=== PATIENT | female | born 1990 | race Caucasian/White ===

== ENCOUNTER 2019-03-25 20:36 | Emergency (ER) | payer SELFPAY ==
--- OUTSIDE RECORDS SUMMARY | 2019-03-25 20:51 | XMS REPORT | Continuity of Care Document ---
:1990 External Reference #:[id number] Author Name Carol Ramos PA Address [address] [place] [address] Care Team Providers Name Role Phone Tatiana Hess NP # - Family Care Team Information Outsole Compressor [phone] Dr Wanda Rome - Otolaryngology Care Team Information Outsole Compressor [phone] Marvin Miramontes MD # - Surgery Care Team Information Outsole Compressor Problems Active Problems Provider Date Anxiety state Tatiana Hess NP Onset: 02/19/2017 Obesity Tatiana Hess NP Onset: 02/19/2017 Social History Type Date Description Comments Sex Unknown ETOH Use Rarely consumes once a month alcohol Tobacco Use Start: Unknown Patient has never Exposed to 2nd hand smoked smoke her entire life as well as currently Recreational Drug Use Denies Drug Use Tobacco Use Start: Unknown Smoke Free Home Smoking Status Reviewed: 08/16/18 Smoke Free Home Exercise Type/Frequency Exercises regularly Walk 1 - 1.5mile every day, some calisthenics. Smoke Alarms Yes Recent Travel There has not been recent travel abroad Allergies, Adverse Reactions, Alerts Active Allergies Reaction Severity Comments Date Penicillin hives 08/05/2013 Propranolol vision problems 08/05/2013 Amoxicillin hives 08/05/2013 Cipro hives 11/03/2017 Medications Active Medications SIG Qnty Indications Ordering Date Provider Cephalexin 1 tab by mouth 28tabs J02.0 Pedro Webb, 02/20/2019 500mg every 6 hours x 7 MD Tablets days Hydroxyzine HCL 1 tab by mouth 30tabs F41.9 Pedro Webb, 04/29/2018 25mg every night at MD Tablets bedtime as needed for insomnia. Metformin HCL take one tablet by 60tabs Pedro Webb, 03/15/2018 500mg mouth twice a day Tablets for insulin resistance Ibuprofen 1 po every 6 hours 42tabs B34.9 Tawanna Pruitt, 11/03/2017 600mg Tablets x 7 days STRATEGIC ADVISOR Citalopram Take One Tablet By 30tabs F41.9 Pedro Webb, 11/02/2017 Hydrobromide Mouth Every Day MD 10mg For Depression Tablets Topiramate take one tablet by 60tabs Pedro Webb, 07/14/2017 50mg Tablets mouth twice a day MD for migraine Cetirizine HCL take 1 tablet by 30tabs Pedro Webb, 01/15/2017 10mg mouth daily for MD Tablets allergic rhinitis Colace 1 by mouth twice a 60caps Pedro Webb, 06/18/2015 100mg Capsules day as needed Uribel take one daily as 30caps Pedro Webb, 118mg Capsules needed for bladder MD pain Ciprofloxacin HCL 1 by mouth twice a Unknown 500mg day x 7 days Tablets Medications Administered in Office Medication SIG Qnty Indications Ordering Provider Date TB, Intradermal ([place]) Vicki Wu MD 10/18/2014 Injection Immunizations CPT Code Status Date Vaccine Lot # [id number] Given 02/15/2018 Influenza Vaccine over 6Mo Quad Preservative Free [id number] Glaxo [id number] Given 02/19/2017 Influenza Vaccine over 6Mo Quad Preservative Free [id number] Glaxo [id number] Given 02/20/2016 Tdap Vital Signs Date Vital Result Comment 02/20/2019 11:57am Weight 220.00 lb Weight 99.792 kg Body Temperature 98.1 F Body Temperature 36.7 C Heart Rate 103 /min O2 % BldC Oximetry 97 % Respiratory Rate 20 /min BP Systolic 132 mmHg BP Diastolic 70 mmHg Pain Level 8 Chest And Throat 08/16/2018 10:22am Height 62 inches 5'2" Weight 235.50 lb Weight 106.823 kg Body Temperature 98.6 F Body Temperature 37.0 C Heart Rate 88 /min O2 % BldC Oximetry 98 % Respiratory Rate 20 /min BP Systolic 118 mmHg BP Diastolic 80 mmHg Pain Level 4 Left axilla BMI (Body Mass Index) 43.1 kg/m2 Results Description No Information Available Procedures Description No Information Available Medical Devices Description No Information Available Encounters Type Date Location Provider Dx Diagnosis Office Visit 02/20/2019 After Hours Eli Regan J02.0 Streptococcal [facility] ph[facility] R05 Cough O99.513 Diseases of the resp sys comp , third trimester Z3A.32 32 weeks gestation of Assessments Date Code Description Provider 02/20/2019 J02.0 Streptococcal pharyngitis Eli Regan PA 02/20/2019 R05 Cough Eli Regan PA 02/20/2019 O99.513 Diseases of the respiratory system complicating Eli Regan PA , third trimester 02/20/2019 Z3A.32 32 weeks gestation of Eli Regan PA Plan of Treatment No Information Available Functional Status Description No Information Available Mental Status Description No Information Available Referrals Description No Information Available
--- OUTSIDE RECORDS SUMMARY | 2019-03-25 20:51 | XMS REPORT | Continuity of Care Document ---
:1990 External Reference #:[id number] Author Name Eli Regan PA Address [address] [place] [address] Care Team Providers Name Role Phone Tatiana Hess NP - Family Care Team Information Route Service Manager [phone] Dr Wanda Rome - Otolaryngology Care Team Information Route Service Manager Marvin Miramontes MD # - Surgery Care Team Information Route Service Manager Problems Active Problems Provider Date Anxiety state [...] bedtime as needed for insomnia. Metformin HCL Take One Tablet By 60tabs Pedro Webb, 03/15/2018 500mg Mouth Twice A Day Tablets For Insulin Resistance Ibuprofen 1 po every 6 hours 42tabs B34.9 Tawanna Pruitt, 11/03/2017 600mg Tablets x 7 days BUSINESS CONTINUITY STRATEGY DIRECTOR Citalopram Take One Tablet By 30tabs F41.9 [...] CPT Code Status Date Vaccine Lot # [id number] Given 02/15/2018 Influenza Vaccine over 6Mo Quad Preservative Free [id number] Glaxo [id number] Given 02/19/2017 Influenza Vaccine over 6Mo Quad Preservative Free [id number] Glaxo [id number] Given 02/20/2016 Tdap Vital Signs Date Vital [...] Medical Devices Description No Information Available Encounters Description No Information Available Assessments Date Code Description Provider 02/20/2019 J02.0 Streptococcal pharyngitis Eli Regan PA 02/20/2019 R05 Cough Eli Regan PA Plan of Treatment 02/20/2019 - Eli Regan PAJ02.0 Streptococcal pharyngitisNew Medication: Cephalexin 500 mg - 1 tab by mouth every 6 hours x 7 daysComments:Take medication as directed until finishedIncrease fluids and restF/U with PCP or return to UC if symptoms not improved in 3-4 daysR05 CoughComments:Likely due to viral illnessEncourage fluids and restany difficulty breathing or chest pain then go to ED Functional Status Description No Information Available Mental Status Description No Information Available Referrals Description No Information Available
--- NOTE | 2019-03-25 20:57 | ED ---
- HPI Summary HPI Summary: 28 year old female with EDC April 13, 37+3 weeks gestation, presents to the ED with a gush of fluid from her vagina. Fluid is clear and odorless. She reports pressure in her abdomen, trickling from her vagina, diarrhea, bloody mucous, contractions in her back, and nausea. Patient denies fever and cough. Her previous pregnancies are all healthy. She notes that the fetus has had less movement than normal in the past 2 weeks. Patient has DM. She came to [facility] ED because her OB is 2 hours away. - History of Current Complaint Chief Complaint: EDOBProblems Stated Complaint: WATER BROKE AND HER OB IS 2HRS AWAY Time Seen by Provider: 03/25/19 20:46 Hx Obtained From: Patient Chief Complaint: Vaginal Discharge - Fluid, clear and odorless Onset/Duration: Started Minutes Ago Timing: Constant Severity: Moderate Current Severity: Moderate Pain Intensity: 6 Location of Pain: Diffuse Character: Other: - pressure Alleviating Factors: Nothing Associated Signs and Symptoms: Positive: Other: - diarrhea, contractions - Allergies/Home Medications Allergies/Adverse Reactions: Allergies Allergy/AdvReac Type Severity Reaction Status Date / Time amoxicillin Allergy Hives Verified 03/25/19 20:41 Penicillins Allergy Hives Verified 03/25/19 20:41 PMH/Surg Hx/FS Hx/Imm Hx Endocrine/Hematology History: Reports: Hx Diabetes Sensory History: Denies: Hx Deafness Infectious Disease History: No Infectious Disease History: Denies: Traveled Outside the [place] in Last 30 Days - Social History Hx Tobacco Use: No Review of Systems - ROS Summary Review of Systems Summary: Home Medications Medication Instructions Recorded Confirmed Type Metformin ER (NF) 1 tab PO BID 03/25/19 03/25/19 History Zoloft 50 mg PO BID 03/25/19 03/25/19 History Negative: Fever Negative: Cough Positive: Abdominal Pain, Diarrhea Positive: discharge - bloody discharge for past several days, currently clear odorless fluid, other - contractions All Other Systems Reviewed And Are Negative: Yes Physical Exam - Summary Physical Exam Summary: General: Gravid, well-developed, Well-nourished female. Mild discomfort. Neck: Soft, FROM, (-) lymphadenopathy, (-) thyromegaly, (-) JVD. Cardiovascular: Normal sinus rhythm, (-) murmur. Lungs: Clear to auscultation bilaterally (-) wheezes, (-) rales, (-) rhonchi. Abdomen: Soft, non-tender, non-distended, (-) organomegaly, normal bowel sounds. Fundus at the xiphoid process. fetus is cephalic in presentation Back: (-) CVA tenderness Extremities: No edema. Skin: Warm, dry, (-) rash. Neuro: Alert and oriented x3, no focal deficits. Psychiatric: appears mildly anxious Speculum Exam: No obvious fluid from cervial os, no pooling. Discharge pH 6.0 on nitrazene paper. On internal exam she was 1-2 cm, 50% effaced, -3 station. - Physical Exam Triage Information Reviewed: Yes Vital Signs Reviewed: Yes Procedures - Sedation Patient Received Moderate/Deep Sedation with Procedure: No Diagnostics - Vital Signs Vital Signs Temp Pulse Resp BP Pulse Ox 03/25/19 20:39 97.1 F 87 15 139/92 100 - Laboratory Lab Statement: Any lab studies that have been ordered have been reviewed, and results considered in the medical decision making process. Course/Dx - Course Course Of Treatment: During ED course, fluids were given. - Diagnoses Provider Diagnoses: Premature rupture of membranes Discharge ED - Sign-Out/Discharge Documenting (check all that apply): Patient Departure - Discharge for OB - Discharge Plan Condition: Stable Disposition: TRANSFER TO OB ([facility]) Patient Education Materials: (ED) Referrals: [facility] [Outside] No Primary Care Phys,NOPCP [Primary Care Provider] - Additional Instructions: Present to [facility] immediately. - Billing Disposition and Condition Condition: STABLE Disposition: Transfer to OB ([facility]) - Attestation Statements Document Initiated by Scribe: Yes Documenting Scribe: Kristofer Uribe Provider For Whom Scribe is Documenting (Include Credential): Kathy Sanchez MD Scribe Attestation: IKristofer, scribed for Kathy Sanchez MD on 03/25/19 at 2231. Scribe Documentation Reviewed: Yes Provider Attestation: The documentation as recorded by the scribe, Kristofer Uribe accurately reflects the service I personally performed and the decisions made by me, Kathy Sanchez MD Status of Scribe Document: Viewed
[2019-03-25] MEDS ORDERED: NS 0.9% 1000 ML** 1,000 ML IV ONE (21:00)
[2019-03-25 21:11] VITALS: BP 122/78
== END 2019-03-25 21:11 | disposition other institution (70) ==
LOC: ED 20:36
DX: O47.1 False labor at or after 37 completed weeks of gestation (principal); Z3A.37 37 weeks gestation of pregnancy; N85.8 Other specified noninflammatory disorders of uterus
CPT/HCPCS: 99282